=== PATIENT | female | born 1945 | race Caucasian/White ===

== ENCOUNTER → 2018-02-11 09:58 | Outpatient (BNVA) | payer MEDICARE, OTHER, SELFPAY | PROVIDERS: Visit Provider Orthopaedic Surgery | DX: Z47.1 Aftercare following joint replacement surgery (principal); Z96.653 Presence of artificial knee joint, bilateral; I10 Essential (primary) hypertension | CPT/HCPCS: 99211; 99213 ==

== ENCOUNTER → 2019-02-03 09:51 | Outpatient (BNVA) | payer MEDICARE, OTHER, SELFPAY | PROVIDERS: PCP Physician Assistant Medical; Referring Provider Physician Assistant Medical; Visit Provider Orthopaedic Surgery | DX: Z47.1 Aftercare following joint replacement surgery (principal); M17.0 Bilateral primary osteoarthritis of knee; I10 Essential (primary) hypertension; Z96.653 Presence of artificial knee joint, bilateral | CPT/HCPCS: 99213 ==